=== PATIENT | female | born 1995 | race American Indian/Alaskan Native ===

== ENCOUNTER 2017-05-29 12:42 | Outpatient (CLI) | payer OTHER | END 2017-05-29 17:30 | disposition home or self-care (01) | LOC: EDBD 12:42 → OBS/DEL 12:42 | DX: O23.42 Unspecified infection of urinary tract in pregnancy, second trimester (principal) ==

== ENCOUNTER 2017-06-06 12:55 | Inpatient (IN) | payer OTHER ==
[~2017-06-06] VITALS: Ht 160 cm; Wt 57.2 kg
== END 2017-06-12 14:18 | disposition home or self-care (01) | DRG 781 ==
LOC: OBS/DEL 12:55 → LDR 06-07 09:07 → OB/GYN 06-07 09:07
PROC: 4A1HXCZ Monitoring of Products of Conception, Cardiac Rate, External Approach (ICD-10-PCS; principal; 2017-06-07)
DX: O23.03 Infections of kidney in pregnancy, third trimester (principal); O99.013 Anemia complicating pregnancy, third trimester; Z3A.29 29 weeks gestation of pregnancy

== ENCOUNTER 2017-08-07 20:46 | Outpatient (CLI) | payer OTHER ==
[2017-08-07] MEDS ORDERED: PRENATAL FORMU1 EAC2 PO (21:37)
== END 2017-08-08 12:43 | disposition home or self-care (01) ==
LOC: OBS/DEL 20:46
DX: O47.1 False labor at or after 37 completed weeks of gestation (principal); O26.893 Other specified pregnancy related conditions, third trimester; N20.1 Calculus of ureter; N20.0 Calculus of kidney; O23.43 Unspecified infection of urinary tract in pregnancy, third trimester; Z34.03 Encounter for supervision of normal first pregnancy, third trimester

== ENCOUNTER 2017-08-19 07:27 | Inpatient (IN) | payer OTHER ==
[~2017-08-19] VITALS: Ht 157.5 cm; Wt 69.4 kg
[~2017-08-19 07:27] MED LIST: PRENATAL FORMU1 EAC2 PO
== END 2017-08-21 12:27 | disposition home or self-care (01) | DRG 775 ==
LOC: LDR 07:27 → OB/GYN 07:27 → LDR 13:51 → OB/GYN 23:31
PROC: 0HQ9XZZ Repair Perineum Skin, External Approach (ICD-10-PCS; principal; 2017-08-19)
PROC: 10E0XZZ Delivery of Products of Conception, External Approach (ICD-10-PCS; 2017-08-19)
PROC: 4A1HXCZ Monitoring of Products of Conception, Cardiac Rate, External Approach (ICD-10-PCS; 2017-08-19)
PROC: 4A033R1 Measurement of Arterial Saturation, Peripheral, Percutaneous Approach (ICD-10-PCS; 2017-08-19)
DX: O70.0 First degree perineal laceration during delivery (principal); O13.3 Gestational [pregnancy-induced] hypertension without significant proteinuria, third trimester; Z3A.39 39 weeks gestation of pregnancy; Z37.0 Single live birth

== ENCOUNTER 2021-02-11 17:31 | Outpatient (CLI) | payer OTHER | END 2021-02-12 12:41 | disposition home or self-care (01) | LOC: OBS/DEL 17:31 | PROVIDERS: ATTEND Obstetrics & Gynecology | DX: O23.42 Unspecified infection of urinary tract in pregnancy, second trimester (principal); Z3A.25 25 weeks gestation of pregnancy ==

== ENCOUNTER 2021-04-25 13:08 | Outpatient (CLI) | payer OTHER ==
[2021-04-25] MEDS ORDERED: PRENATAL CAPLE1 EAC1 PO (13:29)
== END 2021-04-26 11:05 | disposition home or self-care (01) ==
LOC: OBS/DEL 13:08
PROVIDERS: ATTEND Obstetrics & Gynecology
DX: O60.03 Preterm labor without delivery, third trimester (principal); Z3A.35 35 weeks gestation of pregnancy

== ENCOUNTER 2021-05-22 07:48 | Inpatient (IN) | payer OTHER ==
[~2021-05-22] VITALS: Ht 160 cm; Wt 70.8 kg
[~2021-05-22 07:48] MED LIST changes: +PRENATAL CAPLE1 EAC1 PO
== END 2021-05-24 16:05 | disposition home or self-care (01) | DRG 807 ==
LOC: OB/GYN 07:48 → LDR 07:48 → OB/GYN 17:45
PROVIDERS: ADMIT Obstetrics & Gynecology; ATTEND Obstetrics & Gynecology
PROC: 10E0XZZ Delivery of Products of Conception, External Approach (ICD-10-PCS; principal; 2021-05-22)
PROC: 10907ZC Drainage of Amniotic Fluid, Therapeutic from Products of Conception, Via Natural or Artificial Opening (ICD-10-PCS; 2021-05-22)
PROC: 3E033VJ Introduction of Other Hormone into Peripheral Vein, Percutaneous Approach (ICD-10-PCS; 2021-05-22)
PROC: 4A1HXFZ Monitoring of Products of Conception, Cardiac Rhythm, External Approach (ICD-10-PCS; 2021-05-22)
DX: O80 Encounter for full-term uncomplicated delivery (principal); Z37.0 Single live birth; Z3A.39 39 weeks gestation of pregnancy

== ENCOUNTER 2024-09-20 15:26 | Emergency (ER) | payer OTHER ==
[~2024-09-20] VITALS: Ht 160 cm; Wt 61.2 kg
[~2024-09-20 15:26] MED LIST changes: +DOLOGESIC 500-1 EACH PO; +OSEL75CA PO; +PHENAGIL TABLE1 EACH PO
[2024-09-20] MEDS ORDERED: KETOROLAC TROMETHAMINE 30 MG VIAL IM STA (17:48)
[2024-09-20] MEDS ORDERED: NAPROXEN500 MG PO (17:53)
[2024-09-20] MEDS ORDERED: KETOROLAC TROMETHAMINE 30 MG VIAL ONE (17:56)
== END 2024-09-20 18:10 | disposition home or self-care (01) ==
LOC: ER 16:10
DX: M94.0 Chondrocostal junction syndrome [Tietze] (principal)